=== PATIENT | female | born 1995 | race Asian ===

== ENCOUNTER 2019-08-10 21:00 | Emergency (ER) | payer BC ==
[~2019-08-10] VITALS: Ht 152.4 cm; Wt 52.2 kg
[2019-08-10 21:10] VITALS: BP 140/78
== END 2019-08-11 00:25 | disposition left against medical advice (07) ==
LOC: ER 21:03
DX: R21 Rash and other nonspecific skin eruption (principal); Z53.21 Procedure and treatment not carried out due to patient leaving prior to being seen by health care provider